=== PATIENT | female | born 1960 | race Caucasian/White ===

== ENCOUNTER 2023-06-10 14:26 | Outpatient (CLI) | payer BC | END 2023-06-10 14:27 | disposition home or self-care (01) | LOC: CSHMRI 14:26 | PROVIDERS: ATTEND Neurological Surgery | DX: G95.9 Disease of spinal cord, unspecified (principal); Z98.890 Other specified postprocedural states; M47.816 Spondylosis without myelopathy or radiculopathy, lumbar region | CPT/HCPCS: 72158 ==

== ENCOUNTER 2024-07-06 13:07 | Outpatient (CLI) | payer MEDICARE, OTHER | END 2024-07-06 13:08 | disposition home or self-care (01) | LOC: CSHMAMMO 13:07 | PROVIDERS: ATTEND Family Medicine | DX: Z78.0 Asymptomatic menopausal state (principal); M81.0 Age-related osteoporosis without current pathological fracture; M85.832 Other specified disorders of bone density and structure, left forearm | CPT/HCPCS: 77080 ==